=== PATIENT | female | born 1960 | race Two or more races ===

== ENCOUNTER → 2024-11-21 | Outpatient (CLI) | payer MEDICAID, SELFPAY ==
--- NOTE | 2024-11-21 12:08 | XR_ITS ---
Examination: Cervical spine 4 views TECHNIQUE: AP, lateral, swimmer's lateral, coned AP odontoid cervical spine 4 views Date and time: November 21, 2024 12:52 PM INDICATIONS: Neck pain 3 years. FINDINGS: Grade 1 anterolisthesis C4 on C5, C5 on C6 No cervical fracture Intact odontoid Moderate degenerative disc disease C5-C6, advanced degenerative disease C6-C7 IMPRESSION: Moderate degenerative disc disease C5-C6 Advanced degenerative disc disease C6-C7
--- NOTE | 2024-11-21 12:08 | XR_ITS ---
Examination: Bilateral hands, 6 views. Technique: AP, Oblique, Lateral each hand total 6 views Date and time of exam: November 21, 2024 12:19 PM INDICATIONS: Chronic hand pain 3 years Findings: Significant osteopenia Bilateral advanced osteoarthritis first carpometacarpal joints including ossified bodies adjacent to this joint Moderate osteopenia. No erosive arthritis The bilateral distal interphalangeal joints second through fifth digits and interphalangeal joints first digits demonstrate mild osteoarthritis No fractures IMPRESSION: Osteoarthritis as above
--- NOTE | 2024-11-21 12:09 | XR_ITS ---
Examination: Bilateral shoulders 6 views Technique: Shoulder AP internal rotation, AP external rotation, Y view each shoulder total 6 views Exam date and time :November 21, 2024 12:19 PM INDICATIONS: Shoulder pain 3 years. FINDINGS: Moderate osteopenia. Moderate narrowing glenohumeral joints No shoulder fractures or dislocations IMPRESSION: Bilateral moderate narrowing glenohumeral joints No calcific tendinitis
--- NOTE | 2024-11-21 12:09 | XR_ITS ---
Examination: Knee bilateral, 6 views Technique: Knee AP, lateral, oblique each knee total 6 views Date and time of exam: November 21, 2024 1219 hours INDICATIONS: Bilateral knee pain 3 years. FINDINGS: Prominent osteopenia Bilateral advanced narrowing medial joint spaces Bilateral severe narrowing patellofemoral joints No fractures IMPRESSION: Bilateral advanced narrowing medial joint spaces Bilateral severe narrowing patellofemoral joints
== END | disposition home or self-care (01) ==
PROVIDERS: PCP Family Medicine; Referring Provider Nurse Practitioner Family; Visit Provider Nurse Practitioner Family
DX: M19.042 Primary osteoarthritis, left hand (principal); M19.041 Primary osteoarthritis, right hand; M18.0 Bilateral primary osteoarthritis of first carpometacarpal joints; M25.862 Other specified joint disorders, left knee; M25.861 Other specified joint disorders, right knee; M25.812 Other specified joint disorders, left shoulder; M25.811 Other specified joint disorders, right shoulder; M50.322 Other cervical disc degeneration at C5-C6 level
CPT/HCPCS: 72040; 73030; 73130; 73564

== ENCOUNTER 2024-12-27 10:01 | Emergency (ER) | payer MEDICAID, SELFPAY ==
[2024-12-27 10:01] VITALS: BMI 38.9
[2024-12-27 10:12] VITALS: BP 115/80; PULSE 90; RESP 17; TEMP 36.7; O2SAT 97
--- NOTE | 2024-12-27 10:21 | XR_ITS ---
Examination: Knee, left, 3 views Technique: Knee AP, lateral, oblique 3 views Date and time of exam: November 21, 2024, 1219 hours INDICATIONS: Left knee swelling and pain today FINDINGS: Moderate tricompartment osteoarthritis Small anterior and posterior ossified joint bodies subcentimeter Large knee effusion No fracture IMPRESSION: Moderate tricompartment osteoarthritis No fracture Large knee effusion
--- NOTE | 2024-12-27 10:21 | XR_ITS ---
Examination: Duplex scan of the lower extremity, unilateral left Date and time of exam: , 2024, 120 hours INDICATION: Left leg swelling and pain beginning 2 days ago Technique: Duplex scan of the extremity veins using B-mode/grayscale imaging and Doppler spectral analysis and color flow Attention is directed to internal echogenicity, compression and augmentation involving these veins, color flow assessment, spectral analysis Findings: Major deep venous structures in the extremity demonstrate normal course and caliber. There is no evidence of deep vein thrombosis. Normal color flow and spectral analysis Impression: Negative for DVT..
--- NOTE | 2024-12-27 10:23 | PD.EDRME ---
Rapid Medical Screening Exam RME Arrival date/time: 12/27/24 10:01 64-year-old female presents to the emergency department today for complaints of left knee swelling Chief Complaint: Extremity Problem,Nontraumatic Time Seen by Provider: 12/27/24 10:10 Vital signs: Vital Signs Temperature 98.1 F 12/27/24 10:12 Pulse Rate 90 12/27/24 10:12 Respiratory Rate 17 12/27/24 10:12 Blood Pressure 115/80 12/27/24 10:12 Pulse Oximetry (%) 97 12/27/24 10:12 Oxygen Delivery Method Room Air 12/27/24 10:12
[2024-12-27] MEDS: KETOROLAC INJ 30 MG/ML VIAL IM (10:45)
[2024-12-27 11:00] LABS: Lactate (Lactic Acid) 1.3 mMol/L (0.4-2.0)
[2024-12-27 11:02] LABS: Basophils # (Auto) 0.0 Thou/mm3 (0.0-0.2); Basophils % (Auto) 0 % (0-2.5); Eosinophils # (Auto) 0.0 Thou/mm3 (0.0-0.5); Eosinophils % (Auto) 0 % (0-10); Hematocrit 38.6 % (36.0-46.0); Hemoglobin 12.7 g/dL (12.0-16.0); Immature Granulocytes Auto 0.02 Thou/mm3 (0.00-0.00); Lymphocytes # (Auto) 1.4 Thou/mm3 (1.0-4.8); Lymphocytes % (Auto) 14 % (10-50); Mean Corpuscular HGB Conc 32.9 g/dl (31.0-37.0); Mean Corpuscular Hemoglobin 29.9 pg (25.0-35.0); Mean Corpuscular Volume 91 fL (80-100); Monocytes # (Auto) 0.7 Thou/mm3 (0.0-0.8); Monocytes % (Auto) 7 % (0-12); Neutrophils # (Auto) 7.8 Thou/mm3 (1.8-7.7); Neutrophils % (Auto) 78 % (37-80); Nucleated Red Blood Cell # 0.00 Thou/mm3 (0.00-0.00); Nucleated Red Blood Cell % 0 /100 WBC (0); Platelet Count 280 Thou/mm3 (140-440); RDW Standard Deviation 44.9 fL (36.4-46.3); Red Blood Count 4.25 Miln/mm3 (4.00-5.20); White Blood Count 9.9 Thou/mm3 (3.6-11.0)
[2024-12-27 11:29] LABS: Alanine Aminotransferase 26 U/L (10-49); Albumin, Serum 4.4 gm/dL (3.4-4.8); Albumin/Globulin Ratio 1.8 (1.2-2.2); Alkaline Phosphatase 66 U/L (46-116); Anion Gap 11 (7-16); Aspartate Amino Transferase 20 U/L (0-34); BUN/Creatinine Ratio 17 Ratio (12-20); Bilirubin,Total 0.5 mg/dL (0.3-1.2); Blood Urea Nitrogen 10 mg/dL (9-23); C-Reactive Protein 6.3 mg/dL (0.0-0.9); Calcium 9.4 mg/dL (8.3-10.6); Calcium (Corrected) 9.4 mg/dL (8.5-10.1); Carbon Dioxide 22.4 mMol/L (20.0-31.0); Chloride 108 mMol/L (98-107); Creatinine (Component) 0.6 mg/dL (0.6-1.3); Estimated Creatinine Clearance 104.1 mL/min (>60); Globulin 2.5 gm/dL (2.3-3.5); Glucose 103 mg/dL (74-106); INR 1.0 (0.9-1.3); Osmolality,Calculated 280 (275-295); Partial Thromboplastin Time 25.8 Seconds (22.0-36.0); Potassium 4.1 mMol/L (3.4-5.1); Procalcitonin 0.04 ng/ml (0.0-0.49); Prothrombin Time 10.6 Seconds (9.0-12.2); Sodium 141 mMol/L (136-145); Total Protein 6.9 gm/dL (5.7-8.2); eGFR > 60 See Note
[2024-12-27 11:55] LABS: Sed Rate (ESR) 45 mm/hr (0-30)
--- NOTE | 2024-12-27 13:38 | EDNOTE_ITS ---
<Statement entered by Jaja Hurtado MD - 01/08/25 14:38> As co-signing physician, I was present and available for consult prn. I concur with the plan and care as documented by the midlevel provider. ED Extremity Problem RME/HPI General Chief complaint: Extremity Problem,Nontraumatic Stated complaint: LEFT LEG PAIN Time Seen by Provider: 12/27/24 10:10 Arrival date/time: 12/27/24 10:01 RME / HPI RME / HPI Narrative: 64-year-old female presents to the emergency department today for complaints of left knee swelling. Onset of symptoms for the last 3 days, severity of symptoms moderate. Described as dull ache, severity moderate. Patient denies any fever. Denies any redness to the knee. Denies any other complaints no medication was taken prior to ER visit. Patient also denies any trauma. Related Data Home Medications ?Medication ?Instructions ?Recorded ?Confirmed albuterol sulfate 90 mcg/actuation 1 puff inhalation Q ID 03/30/18 03/30/18 aerosol inhaler cetirizine 10 mg tablet 10 mg PO QDAY 03/30/1803/30 chlorthalidone 25 mg tablet 25 mg PO QDAY 03/30/1812/08 ibuprofen 800 mg tablet 800 mg PO TID PRN Pain 03/3003/30/18 Previous Rx's ?Medication ?Instructions ?Recorded hydrocodone 5 mg-acetaminophen 325 1 tab PO Q8H PRN pa in #10 tabs 11/30/23 mg tablet lidocaine 5 % topical patch 1 patch topical QDAY #15 e a 11/30/23 (Lidoderm) naproxen 500 mg tablet (Naprosyn) 500 mg PO BID PRN pa in #20 tabs 12/27/24 prednisone 50 mg tablet 50 mg PO QDAY 7 days #7 tabs 12/27/24 Allergies Allergy/AdvReac Type Severity Reaction Status Date / Time No Known Allergies Allergy Verified 12/27/24 10:04 Review of Systems Review of Systems Narrative Review of Systems: Review of system reviewed and within normal limits except mentioned in HPI ED Exam Narrative Physical exam: VITAL SIGNS: Reviewed. GENERAL APPEARANCE: Alert and interactive, follows commands, no acute distress, HEAD AND FACE: Non-traumatic. ENT: PERRL, pink conjunctivitis, eyelid no trauma, Mucous membrane moist. NECK: Supple, nontender, no nuchal rigidity. CHEST: No tenderness, no crepitus, no paradoxical movement, no retractions. LUNGS: Clear, well ventilated, symmetric, no rales, no wheezing, no ronchi, no stridor, good breath sounds bilaterally. HEART: Regular rate, regular rhythm, no murmur, no gallops. ABDOMEN: Soft, positive bowel sounds, nondistended, no guarding, nontender, no rebound, no masses, RECTAL: Deferred. GENITAL: Deferred. NEUROLOGICAL: Gross motor function intact sensory function intact, Appropriate for age. MUSCULOSKELETAL: low back nontender, full range of motion. EXTREMITIES: Left knee swelling, no redness, no skin breakdown with tenderness, full range of motion. Distal neurovascular status intact SKIN: Color pink, dry, no rash, no lacerations, no abrasions, no contusions. LYMPHATICS: Deferred. Course Quality Measures none Orders Category Date Time Status US venous doppler LE LT Stat Exams 12/27/24 10:21 Completed XR knee LT 3V Stat Exams 12/27/24 10:21 Completed Blood Culture (Lab) Stat Lab 12/27/24 10:37 Received CBC Stat Lab 12/27/24 10:37 Completed CMP [Comprehensive Metabolic Panel] Stat Lab 12/27/24 10:37 Completed CRP [C-Reactive Protein] Stat Lab 12/27/24 10:37 Completed ESR [Sed Rate (ESR)] Stat Lab 12/27/24 10:37 Completed Lactic Acid [Lactate (Lactic Acid)] Stat Lab 12/27/24 10:37 Completed PT [Prothrombin Time with INR] Stat Lab 12/27/24 10:37 Completed Partial Thromboplastin Time Stat Lab 12/27/24 10:37 Completed Procalcitonin Stat Lab 12/27/24 10:37 Completed Dexamethasone Inj [Decadron Inj] Med 12/27/24 13:37 Discontinued 10 mg IM X1 ONE Ketorolac Inj [Toradol Inj] Med 12/27/24 10:21 Discontinued 30 mg IM X1 ONE Vital Signs Vital signs: Vital Signs Temperature 98.1 F 12/27/24 10:12 Pulse Rate 90 12/27/24 10:12 Respiratory Rate 17 12/27/24 10:12 Blood Pressure 115/80 12/27/24 10:12 Pulse Oximetry (%) 97 12/27/24 10:12 Oxygen Delivery Method Room Air 12/27/24 10:12 Extremity Problem [facility] Narrative [facility] Narrative:: 64-year-old female presents to the emergency department today for complaints of left knee swelling. Onset of symptoms for the last 3 days, severity of symptoms moderate. Described as dull ache, severity moderate. Patient denies any fever. Denies any redness to the knee. Denies any other complaints no medication was taken prior to ER visit. Patient also denies any trauma. Patient's workup today all came back with no leukocytosis. CMP unremarkable except for C-reactive protein of 6.3 ultrasound of the lower extremities negative for DVT. X-ray of the knee showed Moderate tricompartment osteoarthritis No fracture Large knee effusion Patient received Toradol IM and Decadron IM with significant improvement of symptoms. Patient was advised to follow-up with PCP and for referral to orthopedic surgeon for possible arthrocentesis. Stable for discharge home Patient data External records reviewed:: None Clinical information provided by:: patient Social determinants that could affect healthcare access:: none Patient has the following chronic illnesses:: Hypertension How is presenting disease/condition affected by chronic disease/condition?: exacerbated by Evaluation data The following diagnostics were reviewed and interpreted by me:: lab results and radiology exam(s) Lab and/or radiology exams considered but not ordered:: None Interpretation Summary: See results MDM Medications / Prescriptions Medications or Prescriptions considered but not ordered:: None Medication administrations:: Medication Administration History Discontinued Medications Dexamethasone Sodium Phosphate (Dexamethasone Sod Phos Inj 10 Mg/Ml Vial) 10 mg IM X1 ONE Stop: 12/27/24 13:38 Ketorolac Tromethamine (Ketorolac Inj 30 Mg/Ml Vial) 30 mg IM X1 ONE Stop: 12/27/24 10:22 Last Admin: 12/27/24 10:45 Dose: 30 mg Documented By: OA Decadron, Toradol IM Consultations Consultation(s) initiated? (list below): No Diagnosis Extremity Problem Differential Diagnosis: deep venous thrombosis of upper extremity and other (Knee arthritis, knee effusion) Most likely diagnosis given after review of the tests above:: Knee arthritis, knee effusion Admission Indicated Admission indicated?: not indicated Admission Request Was there a request for admission?: No Disposition Plan Disposition Plan: Discharge Discharge Attestation Discharge Attestation: The patient was given an opportunity to ask questions and understood the discharge instructions. Discharge instructions specifically effects, indications for sooner follow up or return to the emergency department, and the expected course of current diagnosis. Patient condition: Stable Discharge Plan Plan Patient Disposition: HOME (Self Care) Discharge Disposition comment: Stable Prescriptions/Referrals Prescriptions/Med Rec: New naproxen [Naprosyn] 500 mg tablet 500 mg PO BID PRN (Reason: pain) Qty: 20 0RF prednisone 50 mg tablet 50 mg PO QDAY 7 Days Qty: 7 0RF No Action cetirizine 10 mg Tablet 10 mg PO QDAY ibuprofen 800 mg Tablet 800 mg PO TID PRN (Reason: Pain) chlorthalidone 25 mg Tablet 25 mg PO QDAY albuterol sulfate 90 mcg/actuation Hfa Aerosol Inhaler 1 puff INHALATION QID lidocaine [Lidoderm] 5 % adhesive patch,medicated 1 patch topical QDAY Qty: 15 0RF Rx Instructions: leave on most painful area for up to 12 hrs hydrocodone-acetaminophen 5-325 mg tablet 1 tab PO Q8H MDD 3 tabs/day PRN (Reason: pain) Qty: 10 0RF Referrals: Shorty Jean Baptiste MD [Primary Care Provider, Family Practice] - In 1 week Problem List Clinical Impression: Arthritis of knee Patient/Caregiver Discharge Instructions Discharge Activity: activity as tolerated Education Materials: ED Knee Effusion, Osteoarthritis Additional Instructions: Thank you for the opportunity for serving you today. You are stable for discharged . You are advised to: Follow-up with your PCP in 1 to 2 days and asked for referral to orthopedic surgeon Return to ED for worsening of symptoms Increase oral fluids Take medication as prescribed Print Language: Sammarinese Stand Alone Forms: Denisse Award Info., Patient Portal Info Letter SEBASTIAN/PRATEEK Supervising Physician SEBASTIAN/PRATEEK Supervising Physician: MD Bryant
[2024-12-27] MEDS: DEXAMETHASONE SOD PHOS INJ 10 MG/ML VIAL IM (13:53)
== END 2024-12-27 14:16 | disposition home or self-care (01) ==
PROVIDERS: Nurse Practitioner Primary Care; Emergency Provider Emergency Medicine; PCP Family Medicine
DX: M17.12 Unilateral primary osteoarthritis, left knee (principal); M79.89 Other specified soft tissue disorders; M79.605 Pain in left leg
CPT/HCPCS: 36415; 73562; 80053; 83605; 84145; 85025; 85610; 85652; 85730; 86140; 87040; 93971; 96372; 99284; J1100; J1885